=== PATIENT | female | born 2000 ===

== ENCOUNTER 2020-06-13 05:48 | Emergency (ER) | payer SELFPAY ==
[~2020-06-13] VITALS: Ht 157.5 cm; Wt 46.4 kg
[2020-06-13 05:58] VITALS: BP 102/66; TEMP 98.2
[2020-06-13 07:10] VITALS: PULSE 77
== END 2020-06-13 07:10 | disposition home or self-care (01) ==
LOC: COL.ER 05:48
DX: Z20.822 Contact with and (suspected) exposure to COVID-19 (principal); J02.9 Acute pharyngitis, unspecified